=== PATIENT | male | born 1980 | race Two or more races ===

== ENCOUNTER 2021-03-14 18:00 | Emergency (ER) | payer OTHER ==
[2021-03-14] MEDS ORDERED: DIPHTH,PERTUSS(ACELL),TET 0.5 ML DISP.SYRIN IM ONE (18:07)
[2021-03-14] MEDS ORDERED: ACETAMINOPHEN 1000 MG/100 ML VIAL (NON FORMULARY) IVPB ONE (18:09)
[2021-03-14] MEDS ORDERED: SODIUM CHLORIDE 0.9% 500 ML INFUS.BAG IV ONE (18:09)
[2021-03-14 18:20] VITALS: TEMP 98.3; BMI 19.2
[2021-03-14] MEDS ORDERED: ACETAMINOPHEN INJECTION 100 ML IVPB ONE (18:20)
[2021-03-14] MEDS ORDERED: diphenhydrAMINE HCL 25 MG CAPSULE (FP) PO ONE (18:25)
[2021-03-14] MEDS ORDERED: DEXAMETHASONE SOD PHOSPHATE 10 MG/1 ML VIAL IM ONE (18:25)
[2021-03-14 18:38] LABS: EOS % 1.2 % (0-4.5); HEMATOCRIT 45.3 % (35.4-49); HEMOGLOBIN 15.2 GM/dl (11.7-16.9); LYMPH % 21.7 % (8-40); MCH 29.9 pg (25.7-33.7); MCHC 33.6 g/dl (32.0-35.9); MEAN CELL VOLUME 89.1 fl (80-96); MEAN PLT VOLUME 9.4 fl (7.5-11.1); MONO % 6.8 % (3.8-10.2); NEUT % 69.3 % (42.8-82.8); PLATELET COUNT 130 10^3/uL (134-434); RBC 5.09 M/mm3 (4.00-5.60); RDW 13.2 % (11.9-15.9); WHITE BLOOD COUNT 3.9 K/mm3 (4.0-10.8)
[2021-03-14 18:44] LABS: INR 1.03 (0.82-1.09); PROTHROMBIN TIME (PATIENT) 11.5 SEC (10.2-13.0)
[2021-03-14 18:46] LABS: ALBUMIN 4.1 g/dl (3.4-5.0); BILIRUBIN,TOTAL 1.3 mg/dl (0.2-1); CALCIUM 8.6 mg/dl (8.5-10); CREATININE 1.1 mg/dl (0.55-1.3); TOT PROT 6.7 g/dl (6.4-8.2)
[2021-03-14 18:57] LABS: EPITHELIAL CELLS RARE /hpf
[2021-03-14 19:27] VITALS: PULSE 72
[2021-03-14 20:11] VITALS: BP 119/71
== END 2021-03-14 20:25 | disposition home or self-care (01) ==
LOC: FER 18:00
PROC: 3E0333Z Introduction of Anti-inflammatory into Peripheral Vein, Percutaneous Approach (ICD-10-PCS; principal; 2021-03-14)
PROC: 3E0234Z Introduction of Serum, Toxoid and Vaccine into Muscle, Percutaneous Approach (ICD-10-PCS; 2021-03-14)
DX: S30.811A Abrasion of abdominal wall, initial encounter (principal); W22.8XXA Striking against or struck by other objects, initial encounter; V18.2XXA Unspecified pedal cyclist injured in noncollision transport accident in nontraffic accident, initial encounter; Y92.482 Bike path as the place of occurrence of the external cause; Y93.55 Activity, bike riding
CPT/HCPCS: 36415; 71260-TC; 74177-TC; 80053; 81003; 81015; 83690; 85025; 85610; 86850; 86900; 86901; 90471; 90715; 96374; 99285-25; J0131; Q9967